=== PATIENT | female | born 1950 | race Caucasian/White ===

== ENCOUNTER 2019-03-04 23:13 | Emergency (ER) | payer MEDICARE ==
[~2019-03-04] VITALS: Ht 172.7 cm; Wt 101.0 kg
[2019-03-04 23:20] VITALS: BP 178/73
[2019-03-04] MEDS ORDERED: FLUORESCEIN OPHTHALMIC 1 MG STRIP ONE (23:26)
[2019-03-04] MEDS ORDERED: PROPARACAINE OPHTH 0.5%, 15ML ONE (23:26)
[2019-03-05] MEDS ORDERED: ERYTHROMYCIN OPHTH 0.5%, 1GM RIGHTEYE ONE
[2019-03-05] MEDS ORDERED: SODIUM CHLORIDE 0.9% 1,000ML IVBOLUS ONE
--- NOTE | 2019-03-05 00:08 | NUR ---
SCOTT LENS INSERTED INTO PT RIGHT EYE FOR IRRIGATION. PT TOLERATING WELL.
== END 2019-03-05 00:50 | disposition home or self-care (01) ==
LOC: ED 03-05 00:49
DX: S05.01XA Injury of conjunctiva and corneal abrasion without foreign body, right eye, initial encounter (principal); X58.XXXA Exposure to other specified factors, initial encounter; Y93.89 Activity, other specified; Y92.89 Other specified places as the place of occurrence of the external cause; Y99.8 Other external cause status
CPT/HCPCS: 99283; J7030

== ENCOUNTER 2019-07-30 06:53 | Emergency (ER) | payer MEDICARE ==
[~2019-07-30] VITALS: Ht 172.7 cm; Wt 96.9 kg
[2019-07-30 06:57] VITALS: BP 153/72
[2019-07-30] MEDS ORDERED: HYDROcodone/APAP 5/325 TABLET PO ONE (07:30)
[2019-07-30] MEDS ORDERED: HYDROcodone/APAP 5/325 TABLET ONE (07:33)
== END 2019-07-30 08:22 | disposition home or self-care (01) ==
LOC: ED 07:55
DX: K08.89 Other specified disorders of teeth and supporting structures (principal)
CPT/HCPCS: 99283

== ENCOUNTER → 2020-03-28 | Outpatient (CLI) | payer MEDICARE | END | disposition home or self-care (01) | LOC: CFH 07:26 | PROVIDERS: ATTEND Internal Medicine Cardiovascular Disease | DX: I08.8 Other rheumatic multiple valve diseases (principal); R06.02 Shortness of breath; R94.31 Abnormal electrocardiogram [ECG] [EKG] | CPT/HCPCS: 78452; 93017; 93306; 93356; A9502 ==